=== PATIENT | female | born 1975 | race Caucasian/White ===

== ENCOUNTER 2017-09-25 22:12 | Emergency (ER) | payer SELFPAY ==
--- OUTSIDE RECORDS SUMMARY | 2017-09-25 22:14 | XMS REPORT | Clinical Summary ---
:1975 Author Organization [facility] Address [address] [place] [id number] Care Team Providers Name Role Phone Asked, No Pcp Primary Care Provider Unavailable Allergies Active Allergy Reactions Severity Noted Date Comments Morphine 03/30/2017 Current Medications Prescription Sig. Disp. Refills Start Date End Date Status clindamycin (CLEOCIN) Take 2 capsules 60 capsule 0 03/30/2017 04/09/2017 150 MG capsule (300 mg total) by mouth 3 (three) times a day for 10 days. acetaminophen-codeine Take 1 tablet 12 tablet 0 03/30/2017 04/04/2017 (TYLENOL WITH CODEINE by mouth every #3) 300-30 mg per 6 (six) hours tablet as needed for moderate pain for up to 5 days. ondansetron ODT Take 1 tablet 6 tablet 0 03/30/2017 04/29/2017 (ZOFRAN ODT) 4 MG (4 mg total) by disintegrating tablet mouth every 8 (eight) hours as needed for nausea or vomiting for up to 30 days. Active Problems Not on file Encounters Date Type Specialty Care Team Description 03/30/2017 Emergency Emergency Medicine Joaquín Dorado PA-C Abrasion of calf, unspecified laterality, initial encounter (Primary Dx); Zohaib Hernandez Vaginal discharge MD Robert after 09/24/2016 Immunizations Name Dates Previously Given Next Due Tdap 03/30/2017 Social History Tobacco Use Types Packs/Day Years Used Date Current Every Day Smoker Cigarettes 1 Smokeless Tobacco: Current User Alcohol Use Drinks/Week oz/Week Comments No Sex Assigned at Date Recorded Not on file Last Filed Vital Signs Vital Sign Reading Time Taken Blood Pressure 145/90 03/30/2017 11:44 AM 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 TECHNICIAN Pulse 94 03/30/2017 11:44 AM CATH LAB RADIOLOGY TECHNICIAN Temperature 36.7 C (98.1 F) 03/30/2017 11:44 AM CATH LAB RADIOLOGY TECHNICIAN Respiratory Rate 16 03/30/2017 11:44 AM CATH LAB RADIOLOGY TECHNICIAN Oxygen Saturation 100% 03/30/2017 11:44 AM CATH LAB RADIOLOGY TECHNICIAN Inhaled Oxygen Concentration - - Weight 77.1 kg (170 lb) 03/30/2017 11:41 AM CATH LAB RADIOLOGY TECHNICIAN Height 160 cm (5' 3") 03/30/2017 11:41 AM CATH LAB RADIOLOGY TECHNICIAN Body Mass Index 30.11 03/30/2017 11:41 AM CATH LAB RADIOLOGY TECHNICIAN Plan of Treatment Health Maintenance Due Date Last Done Comments CERVICAL CANCER SCREENING 1998 INFLUENZA VACCINE 12/09/2017 Results XR Tibia Fibula 2 Vw Right (03/30/2017 12:35 PM) Specimen Performing Laboratory [facility] [address] [place] [address] Narrative PROCEDURE:XR TIBIA FIBULA 2 VW RIGHT CLINICAL HISTORY:rule out fxfb or gas COMPARISON:None. TECHNIQUE: 2 views of the right tibia and fibula were performed in the AP and lateral projection. FINDINGS: No acute fracture, dislocation, periosteal reaction, or bone destruction is demonstrated. No soft tissue abnormality is seen. IMPRESSION: No acute bony abnormality. [facility]-[id number] . Procedure Note Interface, Radiology Results Incoming - 03/30/2017 1:15 PM CATH LAB RADIOLOGY TECHNICIAN PROCEDURE: XR TIBIA FIBULA 2 VW RIGHT CLINICAL HISTORY: rule out fx fb or gas COMPARISON: None. TECHNIQUE: 2 views of the right tibia and fibula were performed in the AP and lateral projection. FINDINGS: No acute fracture, dislocation, periosteal reaction, or bone destruction is demonstrated. No soft tissue abnormality is seen. IMPRESSION: No acute bony abnormality. [facility]-[id number] . Urinalysis screen and microscopy, with reflex to culture (03/30/2017 12:02 PM) Component Value Ref Range Specimen site Clean catch Color, UA Yellow Appearance, UA Slightly-Cloudy Specific gravity, UA 1.023 1.001 - 1.035 pH, UA 5.0 5.0 - 8.5 Protein, UA Negative Negative Glucose, UA Negative Negative Ketones, UA Negative Negative Bilirubin, UA Negative Negative Blood, UA Negative Negative Nitrite, UA Negative Negative Urobilinogen, UA 2.0 (A) <2.0 Leukocyte esterase, UA Moderate (A) Negative Epithelial cells, UA Many /HPF WBC, UA 6-10 (H) 0 - 4 /HPF RBC, UA 0-5 0 - 2 /HPF Bacteria, UA Trace None seen Yeast, UA None seen Yeast with pseudohyphae, UA None seen Specimen Performing Laboratory Urine [facility] DEPARTMENT OF PATHOLOGY AND GENOMIC MEDICINE [address] [place] [address] hCG qualitative, urine screen (03/30/2017 12:02 PM) Component Value Ref Range hCG qualitative, urine Negative Negative Comment: The manufacturers stated sensitivity of HcG test for serum is >/=10 mIU/ml and urine is >/=20mIU/ml. [id number],EXP: Specimen Performing Laboratory Urine [facility] DEPARTMENT PATHOLOGY AND GENOMIC MEDICINE [address] [place] [address] Gram stain (03/30/2017 12:02 PM) Component Value Ref Range Gram stain result No WBC's Many Gram positive rods Comment: Specimen Information Specimen Source: Urine Specimen Site: See UA Specimen Performing Laboratory Urine [facility] DEPARTMENT OF PATHOLOGY AND GENOMIC MEDICINE [address] [place] [id number] Urine culture (03/30/2017 12:02 PM) Component Value Ref Range Urine culture isolate Mixed Gram positive amy 10-4 cfu/ml (A) Comment: Specimen Information Specimen Source: Urine Specimen Site: See UA Specimen Performing Laboratory Urine [facility] DEPARTMENT OF PATHOLOGY AND [facility] MEDICINE [address] [place] [address] after 09/24/2016
[2017-09-26] MEDS ORDERED: NA CHLORIDE 0.9% 1,000 ML ONE (00:46)
[2017-09-26] MEDS ORDERED: CEFTRIAXONE/SWI 1gm 1 GM/10 ML SYR ONE (00:46)
[2017-09-26 00:49] LABS: Absolute Lymphocytes (CBC) 2.5 K/uL (0.7-4.9); Absolute Monocytes 0.8 K/uL (0.1-1.3); Absolute Neutrophil 5.6 K/uL (1.8-8.0); Eosinophils % 2.8 % (0-4.4); Hematocrit 31.4 % (36.0-45.0); Lymphocytes % 27.1 % (15.3-44.8); MCH 21.7 pg (27.0-35.0); MCV 69.8 fL (80-100); MPV 7.8 fL (7.6-11.3); Monocytes % 8.6 % (3.3-12.3)
[2017-09-26 00:58] LABS: Barbiturates NEGATIVE; Benzodiazepines NEGATIVE; Cocaine NEGATIVE; METHAMPHETAM NEGATIVE; Opiates NEGATIVE; Phencyclidine NEGATIVE; THC Cannibis NEGATIVE
[2017-09-26 01:01] LABS: Protime INR 0.97
[2017-09-26 01:06] LABS: Bicarbonate 28 mEq/L (21-31); Glucose Level 99 mg/dL (65-120); Potassium 3.8 mEq/L (3.6-5.0); Sodium Level 140 mEq/L (135-145)
[2017-09-26 01:11] LABS: ALT/SGPT 18 IU/L (10-60); AST/SGOT 24 IU/L (10-42); Albumin 4.1 g/dL (3.2-5.5); Alkaline Phosphatase 68 IU/L (42-121); BUN Blood Urea Nitrogen 13 mg/dL (6-20); Bilirubin Direct 0.1 mg/dL (0-0.2); Bilirubin Total 0.3 mg/dL (0.3-1.2)
[2017-09-26 01:21] LABS: Alcohol Serum/Plasma < 10 mg/dl; Salicylates Level < 4.0 mg/dl (<30)
[2017-09-26 01:34] LABS: Urine Blood TRACE (NEG); Urine Glucose NEGATIVE (NEG); Urine Protein NEGATIVE (NEG); Urine Specific Gravity 1.015 (1.005-1.030)
--- NOTE | 2017-09-26 01:56 | ER ---
Nurse's Notes [facility] Name: Bella Wilson Age: 42 yrs Sex: Female : 1975 Arrival Date: 09/25/2017 Time: 22:21 Bed 19 Private MD: Diagnosis: Vomiting;Fever, unspecified;Acute pharyngitis Presentation: 09/25 22:30 Presenting complaint: Patient states: I HAD A FEVER AND I'VE GOT PAIN ALL OVER. bp Transition of care: patient was not received from another setting of care. Onset of symptoms is unknown. Initial Sepsis Screen: Does the patient meet any 2 criteria? No. Patient's initial sepsis screen is negative. Does the patient have a suspected source of infection? No. Patient's initial sepsis screen is negative. Care prior to arrival: None. 22:30 Method Of Arrival: Ambulatory bp 22:30 Acuity: KOLBY 4 bp Triage Assessment: 22:31 General: Appears in no apparent distress. comfortable, Behavior is calm, cooperative, bp appropriate for age. General: PT C/O [place] MEDICAL CONDITIONS, INCLUDING BUT NOT LIMITED TO: HEART ATTACK, FINGERNAIL PROBLEMS, BOWEL INCONTINENCE, FEVER, NAUSEA/VOMITING, INFLUENZA, AND JOINT PAIN. Pain: Complains of pain in GENERALIZED. EENT: No signs and/or symptoms were reported regarding the EENT system. Neuro: Level of Consciousness is awake, alert, obeys commands, Oriented to person, place, time, situation, Appropriate for age. Cardiovascular: No deficits noted. Respiratory: Airway is patent Respiratory effort is even, unlabored, Respiratory pattern is regular, symmetrical. GI: Reports nausea, vomiting. : No signs and/or symptoms were reported regarding the genitourinary system. Derm: No deficits noted. Musculoskeletal: Circulation, motion, and sensation intact. Range of motion: intact in all extremities. 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 - Social history:: Smoking status: Patient uses tobacco products, unknown amount. - Family history:: not pertinent. Screenin:36 Abuse screen: Denies threats or abuse. Denies injuries from another. Nutritional bp screening: No deficits noted. Tuberculosis screening: No symptoms or risk factors identified. Fall Risk None identified. Assessment: 22:36 Reassessment: SEE TRIAGE NOTE. NO OBJECTIVE FINDINGS AT THIS TIME. bp 23:32 Reassessment: PT RESTING QUIETLY, NO ACUTE FINDINGS AT THIS TIME. VS STABLE. bp 09/26 02:39 Reassessment: PT D/C HOME AMBULATORY, DX WITH UNSPECIFIC NAUSEA/VOMITING. bp Vital Signs: 09/25 22:31 BP 151 / 101; Pulse 95; Resp 18; Temp 98.9; Pulse Ox 100% ; Weight 57.61 kg; Height 5 bp ft. 3 in. (160.02 cm); 23:30 BP 125 / 85; Pulse 79; Resp 14; Pulse Ox 99% ; bp 09/26 01:54 BP 110 / 76; Pulse 68; Resp 19; Pulse Ox 99% ; bp 02:42 BP 107 / 59; Pulse 59; Resp 17; Pulse Ox 98% ; bp 09/25 22:31 Body Mass Index 22.50 (57.61 kg, 160.02 cm) bp ED Course: 09/25 22:21 Patient arrived in ED. es 22:30 Russell Angeles, RN is Primary Nurse. bp 22:31 Triage completed. bp 22:36 Arm band placed on. bp 22:36 Patient has correct armband on for positive identification. Bed in low position. Call bp light in reach. Side rails up X2. 23:44 [facility]. cp 23:44 Rubio Harper MD is Attending Physician. cp 09/26 00:25 Inserted saline lock: 20 gauge in left antecubital area, using aseptic technique. Blood bp collected. 00:42 X-ray completed. Portable x-ray completed in exam room. Patient tolerated procedure bb2 well. 00:45 XRAY Chest (1 view) In Process Unspecified. EDMS 01:54 Rubio Harper MD is Referral Physician. tray 02:40 No provider procedures requiring assistance completed. IV discontinued, intact, bp bleeding controlled, No redness/swelling at site. Pressure dressing applied. Administered Medications: 00:30 Drug: NS 0.9% 1000 ml Route: IV; Rate: 1 bolus; Site: left antecubital; bp 02:41 Follow up: IV Status: Completed infusion bp 00:30 Drug: Rocephin - (cefTRIAXone) 1 grams Route: IVPB; Infused Over: 30 mins; Site: left bp antecubital; 02:41 Follow up: IV Status: Completed infusion bp Outcome: 01:55 Discharge ordered by . tray 02:40 Discharged to home ambulatory. bp 02:40 Condition: stable 02:40 Discharge instructions given to patient, Instructed on discharge instructions, follow up and referral plans. medication usage, Demonstrated understanding of instructions, follow-up care, medications, Prescriptions given X 2. 02:48 Patient left the ED. bp Signatures: Dispatcher [employer] EDNM Rubio Harper MD MD cha Salyer, Rubio Cabrales PA PA cp Peltier, Brian, PRISCILLA RN Stephanie Goncalves2
--- NOTE | 2017-09-26 01:56 | EDPHYS ---
Physician Documentation [facility] Name: Bella Wilson Age: 42 yrs Sex: Female : 1975 Arrival Date: 09/25/2017 Time: 22:21 Bed 19 Private MD: ED Physician Rubio Harper HPI: 09/26 00:08 This 42 yrs old Female presents to ER via Ambulatory with complaints of Sore tray Throat, Vomiting, Runny Nose, Abdominal Pain, Diarrhea. 00:08 The patient presents with sore throat. The patient describes throat pain as constant. tray Onset: The symptoms/episode began/occurred 2 day(s) ago. Severity of symptoms: At their worst the symptoms were mild, in the emergency department the symptoms are unchanged. Modifying factors: The symptoms are alleviated by nothing, the symptoms are aggravated by nothing, Patient's oral intake status: limited fluid intake. The patient has not experienced similar symptoms in the past. 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 - Social history:: Smoking status: Patient uses tobacco products, unknown amount. - Family history:: not pertinent. ROS: 09/26 00:08 Eyes: Negative for injury, pain, redness, and discharge, Neck: Negative for injury, tray pain, and swelling, Cardiovascular: Negative for chest pain, palpitations, and edema, Respiratory: Negative for shortness of breath, cough, wheezing, and pleuritic chest pain, Back: Negative for injury and pain, : Negative for injury, bleeding, discharge, and swelling, MS/Extremity: Negative for injury and deformity, Skin: Negative for injury, rash, and discoloration, Neuro: Negative for headache, weakness, numbness, tingling, and seizure. Constitutional: Positive for body aches, chills, fever, malaise, poor PO intake. ENT: Positive for sore throat. Exam: 00:08 Constitutional: This is a well developed, well nourished patient who is awake, alert, tray and in no acute distress. Head/Face: Normocephalic, atraumatic. Eyes: Pupils equal round and reactive to light, extra-ocular motions intact. Lids and lashes normal. Conjunctiva and sclera are non-icteric and not injected. Cornea within normal limits. Periorbital areas with no swelling, redness, or edema. Neck: Trachea midline, no thyromegaly or masses palpated, and no cervical lymphadenopathy. Supple, full range of motion without nuchal rigidity, or vertebral point tenderness. No Meningismus. Chest/axilla: Normal chest wall appearance and motion. Nontender with no deformity. No lesions are appreciated. Cardiovascular: Regular rate and rhythm with a normal S1 and S2. No gallops, murmurs, or rubs. Normal PMI, no JVD. No pulse deficits. Abdomen/GI: Soft, non-tender, with normal bowel sounds. No distension or tympany. No guarding or rebound. No evidence of tenderness throughout. Back: No spinal tenderness. No costovertebral tenderness. Full range of motion. Female : Normal external genitalia. Skin: Warm, dry with normal turgor. Normal color with no rashes, no lesions, and no evidence of cellulitis. MS/ Extremity: Pulses equal, no cyanosis. Neurovascular intact. Full, normal range of motion. Neuro: Awake and alert, GCS 15, oriented to person, place, time, and situation. Cranial nerves II-XII grossly intact. Motor strength 5/5 in all extremities. Sensory grossly intact. Cerebellar exam normal. Normal gait. 00:08 ENT: Posterior pharynx: Tonsils: are normal in appearance, Uvula: normal, swelling, that is mild, erythema, that is mild. Vital Signs: 09/25 22:31 BP 151 / 101; Pulse 95; Resp 18; Temp 98.9; Pulse Ox 100% ; Weight 57.61 kg; Height 5 bp ft. 3 in. (160.02 cm); 23:30 BP 125 / 85; Pulse 79; Resp 14; Pulse Ox 99% ; bp 09/26 01:54 BP 110 / 76; Pulse 68; Resp 19; Pulse Ox 99% ; bp 02:42 BP 107 / 59; Pulse 59; Resp 17; Pulse Ox 98% ; bp 09/25 22:31 Body Mass Index 22.50 (57.61 kg, 160.02 cm) bp MDM: 09/25 23:44 Patient medically screened. cp 09/26 00:11 Data reviewed: vital signs, nurses notes, lab test result(s), EKG, radiologic studies, tray plain films. 09/26 00:07 Order name: Basic Metabolic Panel; Complete Time: 01:51 [facility] 09/26 00:07 Order name: BNP; Complete Time: 01:51 [facility] 09/26 00:07 Order name: CBC with Diff; Complete Time: 01:51 [facility] 09/26 00:07 Order name: LFT's; Complete Time: 01:51 [facility] 09/26 00:07 Order name: Magnesium; Complete Time: 01:51 [facility] 09/26 00:07 Order name: Troponin (emerg Dept Use Only); Complete Time: :51 [facility] 09/26 00:07 Order name: Acetaminophen; Complete Time: 01:51 [facility] 09/26 00:07 Order name: ETOH Level; Complete Time: 01:51 [facility] 09/26 00:07 Order name: PT-INR; Complete Time: 01:51 [facility] 09/26 00:07 Order name: Ptt, Activated; Complete Time: 01:51 [facility] 09/26 00:07 Order name: Salicylate; Complete Time: 01:51 [facility] 09/26 00:07 Order name: Urine Drug Screen; Complete Time: 01:51 [facility] 09/26 00:07 Order name: Blood Culture Adult (2) [facility] 09/26 00:07 Order name: Strep; Complete Time: 01:51 [facility] 09/26 00:07 Order name: Urine Test (obtain specimen); Complete Time: 00:41 [facility] 09/26 00:07 Order name: XRAY Chest (1 view) [facility] 09/26 00:07 Order name: EKG; Complete Time: 00:10 [facility] 09/26 00:07 Order name: Cardiac monitoring; Complete Time: 00:41 [facility] 09/26 00:07 Order name: EKG - Nurse/Tech; Complete Time: 00:41 [facility] 09/26 00:07 Order name: IV Saline Lock; Complete Time: 00:41 [facility] 09/26 00:07 Order name: Labs collected and sent; Complete Time: 00:41 [facility] 09/26 00:07 Order name: O2 Per Protocol; Complete Time: 00:41 [facility] 09/26 00:07 Order name: O2 Sat Monitoring; Complete Time: 00:40 [facility] 09/26 00:07 Order name: Urine Dipstick-Ancillary (obtain specimen); Complete Time: 00:40 [facility] 09/26 00:07 Order name: Urine Culture [facility] 09/26 00:42 Order name: Urine Dipstick--Ancillary (enter results); Complete Time: 01:51 [facility] 09/26 00:42 Order name: Urine --Ancillary (enter results); Complete Time: 01:51 [facility] 09/26 01:04 Order name: Throat Culture EDMS Administered Medications: 00:30 Drug: NS 0.9% 1000 ml Route: IV; Rate: 1 bolus; Site: left antecubital; bp 02:41 Follow up: IV Status: Completed infusion bp 00:30 Drug: Rocephin - (cefTRIAXone) 1 grams Route: IVPB; Infused Over: 30 mins; Site: left bp antecubital; 02:41 Follow up: IV Status: Completed infusion bp Disposition: 09/26/17 01:55 Discharged to Home. Impression: Vomiting, Fever, unspecified, Acute pharyngitis. - Condition is Stable. - Discharge Instructions: Nausea and Vomiting, Pharyngitis, Nausea and Vomiting, [id number], Pharyngitis, [id number], Sore Throat, [id number], Vomiting, Pediatric. - Prescriptions for Bentyl 20 mg Oral Tablet - take 1 tablet by ORAL route every 6 hours As needed; 20 tablet. Zofran 4 mg Oral Tablet - take 1 tablet by ORAL route every 12 hours As needed; 20 tablet. - Medication Reconciliation Form, Thank You Letter, Antibiotic Education, Prescription Opioid Use form. - Follow up: Rubio Harper MD; When: 2 - 3 days; Reason: Recheck today's complaints, Continuance of care, Re-evaluation by your physician. - Problem is new. - Symptoms have improved. Signatures: Dispatcher [employer] EDMS Rubio Harper MD MD cha Page, Corey, PA PA Russell Mohr, RN RN bp Corrections: (The following items were deleted from the chart) 02:48 01:55 09/26/2017 01:55 Discharged to Home. Impression: Vomiting; Fever, unspecified; bp Acute pharyngitis. Condition is Stable. Forms are Medication Reconciliation Form, Thank You Letter, Antibiotic Education, Prescription Opioid Use. Follow up: Dr. Rubio Harper; When: 2 - 3 days; Reason: Recheck today's complaints, Continuance of care, Re-evaluation by your physician. Problem is new. Symptoms have improved. tray
--- NOTE | 2017-09-26 06:28 | EKG ---
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
--- NOTE | 2017-09-26 08:38 | RAD REPORT ---
EXAM DESCRIPTION: RAD - Chest Single View - 09/26/2017 12:44 am CLINICAL HISTORY: Abdominal pain, fever COMPARISON: None. TECHNIQUE: AP portable chest image was obtained 0033 hours . FINDINGS: Lungs are clear. Heart and vasculature are normal. No measurable pleural effusion and no p neumothorax. No gross bony abnormality seen. No acute aortic findings suspected. IMPRESSION: No acute cardiopulmonary process.
== END 2017-09-26 02:48 | disposition home or self-care (01) ==
LOC: ER 22:12
DX: J02.9 Acute pharyngitis, unspecified (principal); R50.9 Fever, unspecified; R11.10 Vomiting, unspecified; Z72.0 Tobacco use; Z88.5 Allergy status to narcotic agent; Z88.8 Allergy status to other drugs, medicaments and biological substances
CPT/HCPCS: 36415; 71045; 80048; 80076; 80307; 80320; 80329; 81003; 81025; 83735; 83880; 84484; 85025; 85610; 85730; 87040; 87070; 87081; 87086; 87088; 93005; 96365; 96366; 99284; J0696; J7030